=== PATIENT | female | born 1945 | race Hispanic/Latino ===

== ENCOUNTER 2017-10-03 14:41 | Emergency (ER) | payer MEDICARE ==
[~2017-10-03] VITALS: Ht 157.5 cm; Wt 93.4 kg
[2017-10-03] MEDS ORDERED: TETRACAINE HCL 0.5% OPTH SOLN 4 ML BTL OP ONE (15:45)
[2017-10-03] MEDS ORDERED: FLUORESCEIN SOD(OPTH) 1 MG STRP OP ONE (15:45)
== END 2017-10-03 16:15 | disposition home or self-care (01) ==
LOC: ER 14:41
DX: H57.11 Ocular pain, right eye (principal); H10.31 Unspecified acute conjunctivitis, right eye
CPT/HCPCS: 99282

== ENCOUNTER 2023-01-18 21:39 | Emergency (ER) | payer MEDICARE ==
[~2023-01-18] VITALS: Ht 157.5 cm; Wt 93.4 kg
[2023-01-18 22:34] LABS: BASOPHILS # (AUTO) 0.1 (0.0-0.1); BASOPHILS % 0.4 % (0.0-1.0); EOSINOPHILS # (AUTO) 0.1 (0.0-0.4); EOSINOPHILS % 1.1 % (0.0-6.0); HEMATOCRIT 24.2 % (34.2-44.1); HEMOGLOBIN 7.3 g/dL (12.0-16.0); LYMPHOCYTES # (AUTO) 1.8 (1.0-3.2); LYMPHOCYTES % 15.7 % (18.0-39.1); MEAN CORPUSCULAR HEMOGLOBIN 27.7 pg (28-32); MEAN CORPUSCULAR HGB CONC 30.2 g/dL (31-35); MEAN CORPUSCULAR VOLUME 91.7 fL (81-99); MONOCYTES % 8.6 % (4.4-11.3); NEUTROPHILS # (AUTO) 8.1 (2.1-6.9); NEUTROPHILS % 71.1 % (38.7-80.0); PLATELET COUNT 424 x10e3/uL (140-360); RED BLOOD COUNT 2.64 x10e6/uL (3.6-5.1); RED CELL DISTRIBUTION WIDTH 19.6 % (11.7-14.4); WHITE BLOOD COUNT 11.37 x10e3/uL (4.8-10.8)
[2023-01-18 22:53] LABS: ALBUMIN 2.2 g/dL (3.5-5.0); ALBUMIN/GLOBULIN RATIO 0.5 (0.8-2.0); ALKALINE PHOSPHATASE 68 IU/L (40-150); ANION GAP 17.1 mmol/L (8-16); BILIRUBIN,TOTAL 0.8 mg/dL (0.2-1.2); BLOOD UREA NITROGEN 47 mg/dL (7-26); BUN/CREATININE RATIO 6 (6-25); CALCIUM 8.9 mg/dL (8.4-10.2); CARBON DIOXIDE 24 mmol/L (22-29); CHLORIDE 102 mmol/L (98-107); CREATININE, SERUM 7.42 mg/dL (0.57-1.11); EST GLOMERULAR FILTRATION RATE 5 ML/MIN (>=60); GLUCOSE 125 mg/dL (74-118); POTASSIUM 4.1 mmol/L (3.5-5.1); SODIUM 139 mmol/L (136-145); TOTAL PROTEIN 6.9 g/dL (6.5-8.1)
[2023-01-18 22:59] LABS: ALANINE AMINOTRANSFERASE < 6 IU/L (0-55)
[2023-01-18 23:22] LABS: COLOR,URINE YELLOW (YELLOW)
[2023-01-18 23:23] LABS: BILIRUBIN,URINE NEGATIVE (NEGATIVE); CLARITY,URINE TURBID (CLEAR); GLUCOSE, URINE NEGATIVE (NEGATIVE); KETONES,URINE NEGATIVE (NEGATIVE); LEUKOCYTE ESTERASE ,URINE LARGE (NEGATIVE); NITRITE,URINE NEGATIVE (NEGATIVE); PH,URINE 7 (5 - 7); PROTEIN,URINE DIPSTICK >=300 (NEGATIVE); URINE UROBILINOGEN 0.2 mg/dL (0.2 - 1)
[2023-01-18 23:24] LABS: BACTERIA,URINE MANY /HPF; EPITHELIAL CELLS,URINE FEW /LPF; WBC,URINE (MAN) >50 /HPF (0-5)
[2023-01-19 01:53] VITALS: BP 131/69; PULSE 112; RESP 30; TEMP 99.6; O2SAT 100
== END 2023-01-19 01:57 | disposition other institution (70) ==
LOC: ER 21:45
DX: R50.9 Fever, unspecified (principal); U07.1 COVID-19; J81.1 Chronic pulmonary edema; I12.0 Hypertensive chronic kidney disease with stage 5 chronic kidney disease or end stage renal disease; N18.6 End stage renal disease; Z99.2 Dependence on renal dialysis; F03.90 Unspecified dementia, unspecified severity, without behavioral disturbance, psychotic disturbance, mood disturbance, and anxiety; E87.70 Fluid overload, unspecified; N39.0 Urinary tract infection, site not specified; R79.89 Other specified abnormal findings of blood chemistry; R94.31 Abnormal electrocardiogram [ECG] [EKG]
CPT/HCPCS: 36415; 71045; 80053; 81001; 83605; 83880; 84484; 85025; 87040; 87086; 87186; 93005; 99285; J0696; U0002